=== PATIENT | male | born 1980 | race Caucasian/White ===

== ENCOUNTER 2020-02-11 21:33 | Observation (INO) ==
[2020-02-11] MEDS ORDERED: SODIUM CHLORIDE 0.9% 1000ML 2,000 ML IV ONE (21:57)
--- NOTE | 2020-02-11 22:12 | Emergency Department Note ---
Impression & Plan Fever, Rigors, Thrombocytopenia, Transaminitis, Acute hyponatremia ED Provider Note NAME: DOMINICK FLETCHER AGE: 39 SEX: M : 1980 ARRIVES VIA: Walk-In INFORMANT: Patient ED PROVIDER(S): Nabeel Bentley DO CHIEF COMPLAINT: Fevers HPI: Patient is a 39-year-old male who presents the ER for fevers. Patient has been having fevers of 101-103 since this past Tuesday. He notes that he has diffuse muscle aches and bone aches. He has been taking Tylenol and now is taking some Advil to bring his fevers down. He notes that he was so sore he never noticed his rash on his left proximal thigh. It is red and circumferential. He notes he does have dogs in the house which intermittently get ticks on them. 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 He denies any sign ificant recent travel but does have we will go down to [place]. He was recently tested for COVID which was negative. He denies any cough shortness of breath or runny nose. No belly pain nausea vomiting or diarrhea. No dysuria urgency or frequency. He notes he does have a headache is located in the frontal sinuses and feels as though pressure. This headache has now dissipated. Is very mild today. He denies any neck stiffness or any pain with range of motion of his neck. He notes he was talking with a physician that he knew who referred him in for additional testing after he found to have the redness on his left thigh. ROS: See above HPI for pertinent positives & negatives. A total of 10 systems reviewed and were otherwise negative. PAST MEDICAL HISTORY:See Below PAST SURGICAL HISTORY:See Below FAMILY HISTORY:See Below SOCIAL HISTORY:See Below HOME MEDICATIONS:See Below ALLERGIES:See Below VITALS:See Below PHYSICAL EXAMINATION: GENERAL: Sitting up in bed, alert, well appearing, well nourished, no distress, non-toxic EYE EXAM: normal conjunctiva. OROPHARYNX: no exudate, no erythema, lips, buccal mucosa, and tongue normal and mucous membranes are moist NECK: supple, no nuchal rigidity, no adenopathy, non-tender LUNGS: Clear to auscultation. Normal chest wall mechanics HEART: no murmurs, S1 normal and S2 normal ABDOMEN: abdomen soft, non-tender, normo-active bowel sounds, no masses, no rebound or guarding. BACK: Back is symmetrical on inspection and there is no deformity, no midline tenderness, no CVA tenderness. SKIN: 4 inch area of circular erythema left proximal lateral thigh UPPER EXTREMITIES: upper extremities are grossly normal. LOWER EXTREMITIES: No pitting edema. NEURO EXAM: Normal sensorium, cranial nerves II-XII grossly intact, normal speech, no gross weakness of arms, no gross weakness of legs. MEDICAL DECISION MAKING: Patient is a 39-year-old male who presents the ER for myalgias, arthralgias and Rigor's. He has been having fevers of 101-104 for the past 3 days. He was seen in the ER and had blood work and discharged home yesterday. He just noticed a rash on his left hip. Labs show leukopenia 4.7 down from earlier today at 4.82. Platelets are down to 124 from 130s. INR was unremarkable. BMP with mild hyp onatremia. Remainder of electrolytes were unremarkable. Transaminitis were worsening with an AST of 139 up from 95 and ALT of 96. Anaplasmosis smear was negative although it does miss close to 30%. IgM was equivocal. Patient was given a gram of Rocephin and oral doxycycline. Doxy would cover him for both Lyme and anaplasmosis. Labs do suggest that this is likely anaplasmosis but with the equivocal Lyme felt was beneficial to give IV Rocephin in combo with the oral doxycycline for Lyme disease which was already given. Patient was given IV fluids. Throughout the ER he had persistent shaking chills. Recommended admission. He declined LP although I do not think that he has meningitis. Patient was agreeable to admission after discussion with the as he was sitting having persistent Rigor's and fevers. Discussed case with the hospitalist for admission and further work-up. Triage Nursing notes reviewed. Prior medical records reviewed Vital Signs: reviewed and remarkable for HTN Differential diagnosis: Differential diagnosis includes etiologies such as sepsis, UTI, pneumonia, metabolic, electrolyte abnormalities, cardiac sources, intracerebral event, toxicologic, neurological, as well as others were entertained. ER treatment provided: See below Diagnostics interpreted by me: ECG: Sinus rhythm rate 65 Normal axis No PVCs Incomplete right bundle Normal QTC Cardiac Monitoring: An order was placed for continuous cardiac monitoring. The monitor shows a rate of 81 with sinus rhythm. Laboratory studies: As stated above and show below. Imaging studies: Portable AP upright 1 view of the chest shows no focal infiltrate or pneumothorax per my read. Consultation(s): Dr. Roe Hdez ED COURSE: Procedures: none Critical Care: None Past Med/Surg History Social History Visual Impairment: Limited Hearing Ability: Hard of Hearing marital status: Current Living Situation Comment: with spouse and children current occupation: self-employed Feels Safe at Home: Yes Smoking Status: Never smoker Hx Alcohol Use: Yes Childhood Exposure to Second-Hand Smoke: Yes Dental Care, Regularly: Yes Physical Activity Frequency: 5-6 Times per Week Allergies Allergies Allergy/AdvReac Type Severity Reaction Status Date / Time No Known Allergies Allergy Verified 02/10/20 20:24 Home Meds Home Medications Medication Instructions Recorded Confirmed acetaminophen [Tylenol Extra 1,000 mg PO Q6H PRN 02/10/20 02/11/20 Strength] multivitamin 1 tab PO DAILY 02/11/20 02/11/20 Previous Rx's Medication Instructions Recorded fluticasone propionate 100 1 puffs INHALATION BID #60 ea 04/04/19 mcg/actuation blister powder for inhalation albuterol sulfate 90 mcg/actuation 1 - 2 puffs INHALATION .COMPLEX 10/30/19 aerosol inhaler PRN #18 gm Results & Data (ED) Vital Signs Vital Signs - 24 hr 02/11/20 21:44 02/11/20 22:36 02/11/20 22:42 Temperature 37.4 C Temperature Source Oral Pulse Rate 79 70 68 Pulse Rate from SpO2 Sensor 69 Respiratory Rate 80 H 20 20 Respiratory Effort / Characteristics Non-Labored Spontaneous Respiratory Depth Normal Respiratory Pattern Regular Blood Pressure 137/92 159/70 H Blood Pressure Mean 107 86 Pulse Oximetry 100 99 99 Oxygen Delivery Method Room Air Room Air Sepsis Recent Fever Within 48 Hours Yes Sepsis New/Unexplained Change in Mental Status No Sepsis Action Taken by Nursing Previously Notified Laboratory Data Result diagrams: 02/11/20 22:24 02/11/20 22:24 Lab Results 02/11/20 02/11/20 02/11/20 Range/Units 22:24 22:24 22:24 WBC 4.74 L (4.8-10.8) K/uL RBC 5.31 (4.7-6.1) M/uL Hgb 14.0 (14.0-18.0) g/dL Hct 41.8 L (42-52) % MCV 78.7 L (80-100) fL MCH 26.4 (25-34) pg MCHC 33.5 (32-36) g/dL RDW Std Deviation 37.4 (36.4-46.3) fL RDW Coeff of Barb 13.2 (11.5-14.5) % Plt Count 124 L (130-400) K/uL MPV 10.5 H (7.4-10.4) fL Immature Gran % (Auto) 0.4 % Neut % (Auto) 75.6 % Lymph % (Auto) 16.2 % [place] % (Auto) 7.2 % Eos % (Auto) 0.0 % Baso % (Auto) 0.6 % Neut # (Auto) 3.58 (1.4-6.5) K/uL Lymph # (Auto) 0.77 L (1.2-3.4) K/uL [place] # (Auto) 0.34 (0.11-0.59) K/uL Eos # (Auto) 0.00 (0-0.5) K/uL Baso # (Auto) 0.03 (0-0.2) K/uL Immature Gran # (Auto) 0.02 (0.00-0.02) K/uL PT 12.9 H (9.0-12.0) Seconds INR 1.2 H (0.9-1.1) APTT 30.4 (21.0-31.0) Seconds PTT Ratio 1.1 Sodium (136-145) mmol/L Potassium (3.5-5.1) mmol/L Chloride (98-107) mmol/L Carbon Dioxide (21-32) mmol/L Anion Gap (3-11) BUN (7-18) mg/dl Creatinine (0.6-1.4) mg/dl Est Cr Clr Drug Dosing ml/min Est GFR ( Amer) Est GFR (Non-Af Amer) BUN/Creatinine Ratio (10-20) Glucose (70-99) mg/dl Lactate (0.4-2.0) mmol/L Calcium (8.5-10.1) mg/dl Magnesium (1.8-2.4) mg/dl Total Bilirubin (0.2-1) mg/dl AST (15-37) U/L ALT (12-78) U/L Alkaline Phosphatase (45-117) U/L Total Protein (6.4-8.2) gm/dl Albumin (3.4-5.0) gm/dl Globulin (2.5-4.0) gm/dl Albumin/Globulin Ratio (0.9-2) Anaplasma Smear See Comment Lyme Disease IgG Ab Negative (Negative) Lyme Disease IgM Ab Equivocal A (Negative) 02/11/20 02/11/20 Range/Units 22:24 22:24 WBC (4.8-10.8) K/uL RBC (4.7-6.1) M/uL Hgb (14.0-18.0) g/dL Hct (42-52) % MCV (80-100) fL MCH (25-34) pg MCHC (32-36) g/dL RDW Std Deviation (36.4-46.3) fL RDW Coeff of Barb (11.5-14.5) % Plt Count (130-400) K/uL MPV (7.4-10.4) fL Immature Gran % (Auto) % Neut % (Auto) % Lymph % (Auto) % [place] % (Auto) % Eos % (Auto) % Baso % (Auto) % Neut # (Auto) (1.4-6.5) K/uL Lymph # (Auto) (1.2-3.4) K/uL [place] # (Auto) (0.11-0.59) K/uL Eos # (Auto) (0-0.5) K/uL Baso # (Auto) (0-0.2) K/uL Immature Gran # (Auto) (0.00-0.02) K/uL PT (9.0-12.0) Seconds INR (0.9-1.1) APTT (21.0-31.0) Seconds PTT Ratio Sodium 135 L (136-145) mmol/L Potassium 3.7 (3.5-5.1) mmol/L Chloride 104 (98-107) mmol/L Carbon Dioxide 25 (21-32) mmol/L Anion Gap 6.0 (3-11) BUN 15 (7-18) mg/dl Creatinine 1.12 (0.6-1.4) mg/dl Est Cr Clr Drug Dosing 97.2 ml/min Est GFR ( Amer) 95.4 Est GFR (Non-Af Amer) 82.3 BUN/Creatinine Ratio 13.5 (10-20) Glucose 110 H (70-99) mg/dl Lactate 1.7 (0.4-2.0) mmol/L Calcium 8.5 (8.5-10.1) mg/dl Magnesium 2.0 (1.8-2.4) mg/dl Total Bilirubin 0.8 (0.2-1) mg/dl AST 139 H (15-37) U/L ALT 96 H (12-78) U/L Alkaline Phosphatase 174 H (45-117) U/L Total Protein 7.2 (6.4-8.2) gm/dl Albumin 3.4 (3.4-5.0) gm/dl Globulin 3.8 (2.5-4.0) gm/dl Albumin/Globulin Ratio 0.9 (0.9-2) Anaplasma Smear Lyme Disease IgG Ab (Negative) Lyme Disease IgM Ab (Negative) Administered Medications Discontinued Medications Doxycycline Hyclate (Vibramycin) 100 mg PO NOW STA Stop: 02/11/20 23:03 Last Admin: 02/11/20 23:14 Dose: 100 mg Documented by: [id number] Sodium Chloride (Nss 1000ml) 2,000 mls @ 999 mls/hr IV .Q2H1M ONE Stop: 02/11/20 23:57 Last Admin: 02/11/20 22:36 Dose: 999 mls/hr Documented by: [id number] Ceftriaxone Sodium (Rocephin) 1,000 mg in 50 mls @ 100 mls/hr IV NOW STA Stop: 02/11/20 23:31 Last Infusion: 02/11/20 23:46 Dose: 0 mls/hr Documented by: [id number] Admin: 02/11/20 23:14 Dose: 100 mls/hr Documented by: [id number] Discharge Plan Visit Data Chief Complaint: Referred by Doctor Stated Complaint: TESTED FOR LYMES ED Provider: Nabeel Bentley Discharge Problem: Fever, Rigors, Thrombocytopenia, Transaminitis, Acute hyponatremia Forms Stand Alone Forms: My [facility] [place] [employer] Prescriptions Prescriptions: No Action fluticasone propionate 100 mcg/actuation blister with device 1 puffs inhalation BID Qty: 60 RF: 5 albuterol sulfate [ProAir HFA] 90 mcg/actuation HFA aerosol inhaler 1 - 2 puffs inhalation .COMPLEX PRN (Reason: shortness of breath or wheezing) Qty: 18 RF: 1 multivitamin Tablet 1 tab PO DAILY RF: 0 acetaminophen [Tylenol Extra Strength] 500 mg Tablet 1,000 mg PO Q6H PRN (Reason: Fever Or Pain) RF: 0 Discharge Problem: Fever Qualifiers: Fever type: unspecified Qualified Code(s): R50.9 - Fever, unspecified
[2020-02-11 22:40] LABS: Basophils # (auto) 0.03 K/uL (0-0.2); Basophils % (auto) 0.6 %; Hematocrit (blood only) 41.8 % (42-52); Immature Granulocytes # (auto) 0.02 K/uL (0.00-0.02); Immature Granulocytes % (auto) 0.4 %; Lymphocytes # (auto) 0.77 K/uL (1.2-3.4); Lymphocytes % (auto) 16.2 %; Mean Corpuscular Hemoglobin 26.4 pg (25-34); Mean Corpuscular Hgb Conc 33.5 g/dL (32-36); Mean Corpuscular Volume 78.7 fL (80-100); Mean Platelet Volume 10.5 fL (7.4-10.4); Monocytes # (auto) 0.34 K/uL (0.11-0.59); Monocytes % (auto) 7.2 %; Neutrophils # (auto) 3.58 K/uL (1.4-6.5); Neutrophils % (auto) 75.6 %; Platelet Count 124 K/uL (130-400); RDW Coefficient of Variation 13.2 % (11.5-14.5); RDW Standard Deviation 37.4 fL (36.4-46.3); Red Blood Count 5.31 M/uL (4.7-6.1); White Blood Count 4.74 K/uL (4.8-10.8)
[2020-02-11 22:52] LABS: INR 1.2 (0.9-1.1); Partial Thromboplastin Ratio 1.1; Partial Thromboplastin Time 30.4 Seconds (21.0-31.0); Prothrombin Time 12.9 Seconds (9.0-12.0)
[2020-02-11 22:57] LABS: Albumin Level 3.4 gm/dl (3.4-5.0); BUN Creatinine Ratio 13.5 (10-20); Calcium 8.5 mg/dl (8.5-10.1); Creatinine Clr Calc Pharmacy 97.2 ml/min; Est GFR (African American) 95.4; Est GFR (Non-African American) 82.3; Potassium 3.7 mmol/L (3.5-5.1)
[2020-02-11 23:00] LABS: Albumin Globulin Ratio 0.9 (0.9-2); Bilirubin,Total 0.8 mg/dl (0.2-1); Globulin 3.8 gm/dl (2.5-4.0); Total Protein 7.2 gm/dl (6.4-8.2)
[2020-02-11] MEDS ORDERED: DOXYCYCLINE HYCLATE 100 MG CAP PO STA (23:02)
[2020-02-11] MEDS ORDERED: cefTRIAXone SODIUM 1,000 MG/50 ML BAG IV STA (23:02)
[2020-02-11 23:28] LABS: Lyme Ab IgG w/WB Rflx Negative (Negative); Lyme Ab IgM w/WB Rflx Equivocal (Negative)
[2020-02-12] MEDS ORDERED: IBUPROFEN 200 MG TAB PO STA (00:29)
--- NOTE | 2020-02-12 02:00 | History & Physical Report ---
Date of Service February 12, 2020 Assessment & Plan (1) Fever: Johnathan Bolanos is a 39 year old man with a PMH significant for Ashtma here with four days of fevers, rigors and muscle pain. 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 Avoiding nsaids and tylenol tramadol for discomfort Ad[facility] to [facility] for cardiac monitoring IF patient develops any neuro symptoms, confusion, worsening headaches, light sensitivity will re recommend LP THromboyctopenia Likely secondary to anaplasmosis infection Will hold off on ibuprofen for fever relief as do not want to inactivate platelets as they can continue to drop with infection Will continue to monitor with daily cbc's Elevated liver enzymes Will hold off on tylenol for fever relief Continue to monitor with daily CMP's Rigors muscle pain and dark urine WIll get CK to evaluate for rhabdo DVT PPx: Lovenox F/E/N: Regular diet, NSS and 20 meq K at 125 mls/hour Dispo: Admitted for IV doxy and ceftriaxone, cardiac monitoring anaplasmosis PCR testing and lyme testing. Full Code (2) Generalized body aches: (3) Rigors: (4) Thrombocytopenia: (5) Transaminitis: (6) Acute hyponatremia: (7) Asthma: Admission and Anticipated Discharge Date Admission Date: February 12, 2020 History of Present Illness Chief Complaint: Fever, Chills, rigors Primary Care Provider: SUSY Mary Johnathan Medina is a generally healthy 39 year old man with a PMH significant for asthma who presents with fevers, chills and rigors since Tuesday. He was last feeling healthy on Tuesday 02/06. On Tuesday he noticed a large, well demarcated, circula,r red rash on his outer thigh. He does not recall any bug bites or ticks but he has been working and hiking outside and he has picked multiple ticks off his dogs. His rigors have been off an on every day for the past three and all of his muscles feel sore from his violent shaking. He has noticed some dark colored urine. Fever as high as 104 has not responded to tylenol. He presented yesterday and was tested for covid and sent home, he's back now continuing to be just as ill and now with this rash. On presentation to ED patient is febrile rest of vitals WNL, breathing comfortably on room air and rigorous. Labwork was significant for mildly decreased WBC count, thrombocytopenia, elevated PT/INR, elevated transaminases and alk phos, peripheral smear negative, lyme IgM equivocal IgG negative individual bands pending, peripheral smear negative, viral panel and COVID negative. CXR negative, ECG with RBB no prior ECG to compare to. Was given doxycycline PO and one dose of 1000 mg Ceftriaxone in ED as well as 2 L nss and ibuprofen. Patient declined Lumbar puncture per ED physician. Patient continuing to feel the same at time of my examination. No shortness of breath, no cough, no loss of smell, no sick contacts. He has had no GI symptoms, no light sensitivity, full range of motion of his neck, no focal neuro deficits, mild chest pain as well as similar pain in all his muscles. Allergies Allergy/AdvReac Type Severity Reaction Status Date / Time No Known Allergies Allergy Verified 02/10/20 20:24 Home Medications Home Medications Medication Instructions Recorded Confirmed Type fluticasone propionate 100 1 puffs INHALATION BID #60 ea 04/04/19 02/11/20 Rx mcg/actuation blister powder for inhalation albuterol sulfate 90 mcg/actuation 1 - 2 puffs INHALATION .COMPLEX 10/30/19 02/11/20 Rx aerosol inhaler PRN #18 gm acetaminophen [Tylenol Extra 1,000 mg PO Q6H PRN 02/10/20 02/11/20 History Strength] multivitamin 1 tab PO DAILY 02/11/20 02/11/20 History Past Med/Surg History Social History Preferred Language: Faroese Communication Ability: Effective Visual Impairment: Limited Hearing Ability: Hard of Hearing Product Sales Engineer Required: No Beliefs That Will Affect Care: None marital status: Current Living Situation: Spouse Current Living Situation Comment: with spouse and children current occupation: self-employed Other Information That Helps Us Care for You: No Feels Safe at Home: Yes Safety Concerns: Feels Safe At This Time Smoking Status: Never smoker Do You Dip or Chew Tobacco: No ; Second Hand Exposure: No ; Hx Alcohol Use: Yes Hx Substance Use: No Childhood Exposure to Second-Hand Smoke: Yes Dental Care, Regularly: Yes Physical Activity Frequency: 5-6 Times per Week Review of Systems Review of Systems: All systems reviewed & are unremarkable except as noted in HPI & below Physical Exam Constitutional: well developed, well nourished and + ill appearing; no altered mental status Eyes: PERRL, conjunctivae normal, anicteric sclerae ENMT: external ear and nose normal, oropharynx normal Respiratory: normal respiratory effort, lungs clear to auscultation Cardiovascular: RRR, no murmur, no edema Gastrointestinal (Abdomen): normal bowel sounds, soft, nontender, no hepa tosplenomegaly Skin: Red circular rash, non raised, blanching warm, no clear puncture, bite or scratch circular oval about 5cm x 4 cm on right Neurologic: PERRL, EOMI, accommodation nl, no face palsy, no dysarthria Speech / Cognition: normal speech Motor/Sensory: no tremor Results & Data Results & Data ([facility]) Vital Signs (Past 12 Hours) Vital Signs Temp Pulse Pulse Resp BP BP Pulse Ox 02/12/20 01:41 39.2 C H 83 18 146/82 H 98 02/12/20 00:27 38.0 C H 72 18 154/88 H 96 02/11/20 22:42 68 20 99 02/11/20 22:36 70 20 159/70 H 99 02/11/20 21:44 37.4 C 79 80 H 137/92 100 Code Status & VTE Plan VTE Prophylaxis Plan VTE Prophylaxis will be ordered: Yes Supervising Physician Co-Signing Physician Notes Attending addendum: I have physically seen this patient, have supervised the medical residents activities, and agree with the H&P unless as otherwise noted. Assessment and Plan: Febrile illness/sepsis- Patient looks very sick, with chills and rigors in the exam room. Presentation with tick exposure, rash, thrombocytopenia, elevated transaminases and equivocal Lyme test most consistent with anaplasmosis. Initial peripheral smear negative. Follow all antibody and PCR testing. Deserves empiric treatment with ceftriaxone 2000 mg IV daily and doxycycline 100 mg IV twice daily. Rehydration with IV fluids. Zofran 4 mg IV every 6 hours as needed Famotidine 20 mg IV every 12 hours Remainder of orders and notations as noted Resident Activity Tracking Resident Involvement: Resident Care Provided Care Provided: Adult Hospital Medicine (1) Fever Fever type: unspecified Qualified Code(s): R50.9 - Fever, unspecified
[2020-02-12] MEDS ORDERED: POLYETHYLENE (MIRALAX) 17 GM PACK PO PRN (02:06)
[2020-02-12] MEDS ORDERED: SODIUM CHLORIDE 0.9% 1000ML 1,000 ML IV SCH (02:06)
[2020-02-12] MEDS ORDERED: ONDANSETRON INJ 2 MG/ML 2 ML VIAL IV PRN (02:06)
[2020-02-12] MEDS ORDERED: ALBUTEROL HFA 8 GM INHALER INH PRN (02:12)
[2020-02-12] MEDS ORDERED: cefTRIAXone SODIUM 1,000 MG in DEXTROSE 5% 50 ML IV ONE ×2 (02:30→20:30)
[2020-02-12] MEDS: NSS + 20MEQ KCL 20 MEQ/1,000 ML BAG IV SCH ×3 (02:37→21:58)
[2020-02-12 03:06] LABS: Appearance Urine Clear (Clear); Bacteria Urine Automated Negative (Negative); Bilirubin Urine Negative (Negative); Blood Urine Negative (Negative); Cast Urine Automated 0 /lpf (0-5); Color Urine Dark Yellow; Glucose Urine UA Negative (Negative); Ketones Urine Trace (Negative); Leukocyte Esterase Urine Negative (Negative); Nitrite Urine Negative (Negative); Protein Urine 1+ (Negative); RBC Urine Automated 0-4 /hpf (0-4); Specific Gravity Urine 1.023 (1.000-1.030); Urobilinogen Urine Positive (Negative); pH Urine 6.5 (4.5-7.5)
--- NOTE | 2020-02-12 07:27 | XRay Report ---
XR chest 1V portable CLINICAL HISTORY: SEPSIS COMPARISON STUDY: Chest radiograph February 10, 2020. FINDINGS: Lung volumes are normal. Lungs are clear. There is no pneumothorax or pleural effusion. Car diac size is normal. Mediastinal contours are normal. There is no evidence for pulmonary edema. IMPRESSION: No acute cardiopulmonary findings. ACT 112: Negative or not required by law. Electronically signed by: Donnell Breaux M.D. 02/12/2020 7:26 AM
[2020-02-12] MEDS: MULTIVITAMIN TAB PO SCH (07:48)
[2020-02-12] MEDS: FLUTICASONE FUROATE 100MCG 14 PUFFS/INHALER INH SCH (07:48)
[2020-02-12] MEDS ORDERED: ENOXAPARIN INJ 40 MG/0.4 ML SYR SQ SCH (09:00)
[2020-02-12] MEDS: DOXYCYCLINE HYCLATE 100 MG in DEXTROSE 5% 100 ML IV SCH ×2 (11:14→23:10)
[2020-02-12 11:23] LABS: Basophils # (auto) 0.03 K/uL (0-0.2); Basophils % (auto) 0.6 %; Hematocrit (blood only) 40.8 % (42-52); Hemoglobin 13.3 g/dL (14.0-18.0); Immature Granulocytes # (auto) 0.01 K/uL (0.00-0.02); Immature Granulocytes % (auto) 0.2 %; Lymphocytes # (auto) 1.47 K/uL (1.2-3.4); Lymphocytes % (auto) 30.6 %; Mean Corpuscular Hgb Conc 32.6 g/dL (32-36); Mean Corpuscular Volume 79.8 fL (80-100); Mean Platelet Volume 9.4 fL (7.4-10.4); Monocytes # (auto) 0.24 K/uL (0.11-0.59); Neutrophils # (auto) 3.05 K/uL (1.4-6.5); Neutrophils % (auto) 63.6 %; Platelet Count 104 K/uL (130-400); RDW Coefficient of Variation 13.1 % (11.5-14.5); RDW Standard Deviation 38.2 fL (36.4-46.3); Red Blood Count 5.11 M/uL (4.7-6.1)
[2020-02-12 11:52] LABS: Albumin Level 2.9 gm/dl (3.4-5.0); BUN Creatinine Ratio 8.3 (10-20); Calcium 8.1 mg/dl (8.5-10.1); Creatinine Clr Calc Pharmacy 87.8 ml/min; Est GFR (African American) 84.3; Est GFR (Non-African American) 72.8; Potassium 4.1 mmol/L (3.5-5.1)
[2020-02-12 11:54] LABS: Albumin Globulin Ratio 0.8 (0.9-2); Bilirubin,Total 0.9 mg/dl (0.2-1); Globulin 3.5 gm/dl (2.5-4.0); Total Protein 6.4 gm/dl (6.4-8.2)
[2020-02-12] MEDS ORDERED: IBUPROFEN 200 MG TAB PO PRN (11:55)
[2020-02-12 12:02] LABS: Toxic Vacuolation 2+
[2020-02-12] MEDS: TRAMADOL HCL 50 MG TABLET PO PRN (12:09)
--- NOTE | 2020-02-12 12:40 | Hospitalist Progress Note ---
Date of Service February 12, 2020 Assessment & Plan (1) Fever: Fevers, chills, rigors suspected anaplasmosis Given his prolonged fevers and rigors, possible tick exposure, red rash, thrombocytopenia, elevated transaminases, very suspicious for anaplasmosis PCR for anaplasmosis pending, Lyme western blot pending Continue IV doxycycline 100 mg BID Acetaminophen, ibuprofen for pain/fever CK was normal Covid testing performed during ED visit over the weekend, negative (2) Thrombocytopenia: Platelets decreased to 104,000. Continue to monitor (3) Transaminitis: Secondary to likely anaplasmosis Resolving (4) Asthma: Continue home inhalers No exacerbation (5) Rash: left hip, large circular dark red rash, now extending slightly out from line of demarcation No central clearing Will leave on ceftriaxone for now to cover for possible cellulitis (6) DVT prophylaxis: DVT PPx: Lovenox F/E/N: Regular diet, NSS and 20 meq K at 125 mls/hour Full Code Admission and Anticipated Discharge Date Admission Date: February 12, 2020 Subjective Mr. Medina is having muscle aches and rigors. He feels generally very unwell. Running low level fevers. Stiff neck but more because of his rigors, neck moves easily through ROM. No headache. ROS Constitutional: see HPI Respiratory: no sob,cough, sputum, or wheezing Cardiac: no chest pain, palpitations, edema, orthopnea or lightheadedness GI: no abdominal pain, nausea, vomiting, diarrhea or constipation : no dysuria or hesitancy Extremities: no joint pain or weakness Skin: no rash All other systems reviewed and negative Physical Exam Physical Exam: General: ill appearing Eyes: normal inspection, PERLL Respiratory: chest non tender, clear to auscultation, normal breath sounds, no respiratory distress, no accessory muscle use Cardiac: regular rate and rhythm, no rub or gallop, no murmur, no edema, no jvd GI/: active bowel sounds, no abd pain or tenderness, soft, non distended Extremities: normal range of motion, normal strength, non tender Neuro/Psych: alert and oriented x 3, normal mood and affect Skin: normal color, dry, circular rash left hip Results & Data Results & Data ([facility]) Vital Signs (Past 12 Hours) Vital Signs Temp Pulse Pulse Resp BP BP Pulse Ox 02/12/20 11:46 37.7 C H 84 16 128/58 L 97 02/12/20 08:00 65 02/12/20 07:16 37.9 C H 82 16 144/75 H 95 02/12/20 02:06 39.5 C H 85 88 18 152/68 H 96 02/12/20 01:41 39.2 C H 83 18 146/82 H 98 Pulse Ox 02/12/20 11:46 02/12/20 08:00 02/12/20 07:16 02/12/20 02:06 96 02/12/20 01:41 PG Care Time/CCT Total # of Minutes Spent Total Time Spent with Patient: Total time spent is greater than 50% in coordination of care (as documented) at patient's floor/unit and/or counseling patient: Coding Level of Care Code 25508 Subseq Hosp Care Lvl 3 Diagnoses Fever R50.9 Fever type: unspecified Thrombocytopenia D69.6 Transaminitis R74.0 Asthma J45.909 Rash R21 DVT prophylaxis Z29.9 (1) Fever Fever type: unspecified Qualified Code(s): R50.9 - Fever, unspecified
[2020-02-12] MEDS: ACETAMINOPHEN 500 MG TAB PO PRN (14:59)
[2020-02-12] MEDS ORDERED: VANCOMYCIN CONSULT ACTIVE PRN (18:01)
[2020-02-12] MEDS ORDERED: VANCOMYCIN HCL 2,000 MG in SODIUM CHLORIDE 0.9% 500 ML IV ONE (18:45)
--- NOTE | 2020-02-12 18:59 | Pharmacy Report ---
Pharmacy Abx Initial Consult - Date of Service February 12, 2020 - Pharmacy Dosing Scope Date of Consult: 02/11 Consultation requested by: Sharon Pharmacy is consulted to initiate vancomycin IV dosing therapy, order appropriate labs and adjust drug dose/frequency. - Subjective The patient is a 39 year old M admitted on 02/12/20 01:08. - Objective Height: 6 ft Weight: 82.9 kg Vital Signs (Past 12hrs): Vital Signs Temp Pulse Pulse Resp BP Pulse Ox 02/12/20 16:09 37.7 C H 02/12/20 15:10 38.7 C H 79 18 162/76 H 97 02/12/20 14:47 84 02/12/20 11:46 37.7 C H 84 16 128/58 L 97 02/12/20 08:00 65 02/12/20 07:16 37.9 C H 82 16 144/75 H 95 Lab Results (24hrs): Laboratory Tests (24 Hours) 02/12/20 02/12/20 02/11/20 11:12 11:12 22:24 WBC 4.80 Neut # (Auto) 3.05 Creatinine 1.24 1.12 Est Cr Clr Drug Dosing 87.8 97.2 Total Creatine Kinase 110 02/11/20 22:24 WBC 4.74 L Neut # (Auto) 3.58 Creatinine Est Cr Clr Drug Dosing Total Creatine Kinase Micro Results: 02/11/20 22:24 Aerobic Blood Culture - Pending Blood Anaerobic Blood Culture - Pending 02/11/20 22:24 Aerobic Blood Culture - Pending Blood Anaerobic Blood Culture - Pending - Assessment & Plan Assessment 39 year old male admitted with fevers, rigors concern for lyme's disease. Continuing to spike fevers this afternoon, neck pain - vancomycin added for broader coverage and to cover meningitis. Patient with also rash of left hip and possible cellulitis. Plan Vancomycin IV * Ordered loading dose of vancomycin 2000 mg (~24 mg/kg) x 1 * Patient meets criteria for vancomycin AUC dosing nomogram - will dose with vancomycin 1g iv q 8 hrs * Estimated trough ~14/AUC 590 - target AUC/ANGELA 400-600 * Will plan to order trough if continued >48 hrs Pharmacy will continue to follow and will adjust dose/frequency as necessary. Thank you.
--- NOTE | 2020-02-12 20:18 | Billing Data ---
Date of Service February 12, 2020 Coding Level of Care Code 80070 Initial Inpt Care Lvl 3
[2020-02-12] MEDS ORDERED: cefTRIAXone SODIUM 2,000 MG in DEXTROSE 5% 50 ML IV SCH (23:00)
--- NOTE | 2020-02-13 00:12 | Electrocardiogram Report ---
Test Reason : Blood Pressure : / mmHG Vent. Rate : 065 BPM Atrial Rate : 065 BPM P-R Int : 196 ms QRS Dur : 112 ms QT Int : 374 ms P-R-T Axes : 055 023 044 degrees QTc Int : 388 ms Normal sinus rhythm Incomplete right bundle branch block Borderline ECG No previous ECGs available Confirmed by Saeid Tai ([id number]) on 02/13/2020 12:12:25 AM Referred By: REFERRED SELF Confirmed By:Saeid Tai
[2020-02-13] MEDS: VANCOMYCIN HCL 1,000 MG in SODIUM CHLORIDE 0.9% 250 ML IV SCH ×2 (03:00→13:51)
[2020-02-13] MEDS: MULTIVITAMIN TAB PO SCH (08:12)
[2020-02-13] MEDS: NSS + 20MEQ KCL 20 MEQ/1,000 ML BAG IV SCH ×2 (08:12→20:13)
[2020-02-13] MEDS: FLUTICASONE FUROATE 100MCG 14 PUFFS/INHALER INH SCH (08:14)
[2020-02-13 08:36] LABS: Basophils # (auto) 0.01 K/uL (0-0.2); Basophils % (auto) 0.3 %; Eosinophils # (auto) 0.03 K/uL (0-0.5); Eosinophils % (auto) 0.8 %; Hematocrit (blood only) 40.5 % (42-52); Hemoglobin 13.2 g/dL (14.0-18.0); Lymphocytes # (auto) 1.78 K/uL (1.2-3.4); Lymphocytes % (auto) 46.1 %; Mean Corpuscular Hemoglobin 25.8 pg (25-34); Mean Corpuscular Hgb Conc 32.6 g/dL (32-36); Mean Corpuscular Volume 79.3 fL (80-100); Mean Platelet Volume 9.4 fL (7.4-10.4); Monocytes # (auto) 0.35 K/uL (0.11-0.59); Monocytes % (auto) 9.1 %; Neutrophils # (auto) 1.69 K/uL (1.4-6.5); Neutrophils % (auto) 43.7 %; Platelet Count 128 K/uL (130-400); RDW Coefficient of Variation 13.3 % (11.5-14.5); RDW Standard Deviation 38.3 fL (36.4-46.3); Red Blood Count 5.11 M/uL (4.7-6.1); White Blood Count 3.86 K/uL (4.8-10.8)
[2020-02-13 09:03] LABS: BUN Creatinine Ratio 8.1 (10-20); Calcium 8.6 mg/dl (8.5-10.1); Creatinine Clr Calc Pharmacy 104.7 ml/min; Est GFR (African American) 104.3; Potassium 3.6 mmol/L (3.5-5.1)
[2020-02-13 09:06] LABS: Albumin Globulin Ratio 0.9 (0.9-2); Bilirubin,Total 0.6 mg/dl (0.2-1); Globulin 3.5 gm/dl (2.5-4.0); Total Protein 6.5 gm/dl (6.4-8.2)
[2020-02-13 11:25] LABS: Appearance CSF Clear; CSF Count Tube # 3; CSF Xanthrochromic No xanthochromia; Color CSF Colorless; Red Blood Cell CSF (A) 0 /uL (0-); Red Blood Cell CSF (B) 0 /uL (0-); White Blood Cell CSF (A) 0 /uL (0-5); White Blood Cell CSF (B) 1 /uL (0-5)
[2020-02-13 11:30] LABS: Total Protein CSF 46.3 mg/dl (15-45)
--- NOTE | 2020-02-13 11:36 | Fluoroscopy Report ---
FL lumbar puncture diagnostic CLINICAL HISTORY: r/o meningitis COMPARISON STUDY: None FLUOROSCOPY TIME: 12 seconds. NUMBER OF FLUOROSCOPIC IMAGES: 1 FINDINGS: A timeout was obtained. The risks the procedure were explained to the patient and informed consent was obtained. The patient prepped and draped in sterile fashion. The skin was anesthetized 1% lidocaine. Utilizing a 20-gauge spinal needle, a lumbar puncture was performed at the L4-5 level. 8 cc of clear CSF was withdrawn via gravity drip and into 4 tubes for laboratory analysis a s specified by the referring clinician. There were no immediate complications. IMPRESSION: 1. Successful fluoroscopically guided diagnostic lumbar puncture performed at the L4-5 level. 8 cc of clear CSF was collected and into 4 tubes and sent for laboratory analysis. ACT 112: Negative or not required by law. Electronically signed by: James Rogers M.D. 02/13/2020 11:34 AM
[2020-02-13] MEDS: cefTRIAXone SODIUM 2,000 MG in DEXTROSE 5% 50 ML IV SCH ×2 (11:52→22:03)
[2020-02-13] MEDS: DOXYCYCLINE HYCLATE 100 MG in DEXTROSE 5% 100 ML IV SCH ×2 (11:59→22:42)
[2020-02-13 14:03] LABS: Cryptococcus neoformans/ga PCR Not Detected (NotDetected); Cytomegalovirus PCR Not Detected (NotDetected); Enterovirus PCR Not Detected (NotDetected); Escherichia coli K1 PCR Not Detected (NotDetected); Haemophilius influenzae PCR Not Detected (NotDetected); Herpes Simplex Virus 1 PCR Not Detected (NotDetected); Herpes Simplex Virus 2 PCR Not Detected (NotDetected); Human Herpes Virus 6 PCR Not Detected (NotDetected); Human Parechovirus PCR Not Detected (NotDetected); Listeria monocytogenes PCR Not Detected (NotDetected); Neisseria meningitidis PCR Not Detected (NotDetected); Streptococcus agalactiae PCR Not Detected (NotDetected); Streptococcus pneumoniae PCR Not Detected (NotDetected); Varicella Zoster Virus PCR Not Detected (NotDetected)
--- NOTE | 2020-02-13 17:33 | Hospitalist Progress Note ---
Date of Service February 13, 2020 Assessment & Plan (1) Fever: Fevers, chills, rigors suspected anaplasmosis Given his prolonged fevers and rigors, possible tick exposure, red rash, thrombocytopenia, elevated transaminases, very suspicious for anaplasmosis and/or Lyme PCR for anaplasmosis pending, Lyme western blot pending Continue IV doxycycline 100 mg BID, Rocephin Acetaminophen, ibuprofen for pain/fever CK was normal Covid testing performed during ED visit over the weekend, negative LP performed this morning due to severe headaches yesterday. Will await results (2) Thrombocytopenia: Platelets rebounding Continue to monitor (3) Transaminitis: Secondary to likely anaplasmosis Resolving (4) Asthma: Continue home inhalers No exacerbation (5) Anemia: Microcytic Iron panel am May be largely dilutional (6) Rash: left hip, No central clearing yet but rash is expanding and lightening in color (7) DVT prophylaxis: Lovenox Admission and Anticipated Discharge Date Admission Date: February 12, 2020 Subjective Feeling much better today. Headaches have resolved, no further aches/chills. Rash continues to get larger but less red. ROS Constitutional: see HPI Respiratory: no sob,cough, sputum, or wheezing Cardiac: no chest pain, palpitations, edema, orthopnea or lightheadedness GI: no abdominal pain, nausea, vomiting, diarrhea or constipation : no dysuria or hesitancy Extremities: no joint pain or weakness Skin: see HPI All other systems reviewed and negative Physical Exam Physical Exam: General: no distress Eyes: normal inspection, PERLL Respiratory: chest non tender, clear to auscultation, normal breath sounds, no respiratory distress, no accessory muscle use Cardiac: regular rate and rhythm, no rub or gallop, no murmur, no edema, no jvd GI/: active bowel sounds, no abd pain or tenderness, soft, non distended Extremities: normal range of motion, normal strength, non tender Neuro/Psych: alert and oriented x 3, normal mood and affect Skin: normal color, dry, left thigh circular rash increasing in size but manager contact red color today Results & Data Results & Data ([facility]) Vital Signs (Past 12 Hours) Vital Signs Temp Pulse Pulse Resp BP Pulse Ox 02/13/20 15:11 36.6 C 56 L 16 145/79 H 98 02/13/20 12:36 36.8 C 67 16 121/67 99 02/13/20 10:00 56 L 02/13/20 07:10 36.9 C 66 16 123/69 97 PG Care Time/CCT Total # of Minutes Spent Total Time Spent with Patient: Total time spent is greater than 50% in coordination of care (as documented) at patient's floor/unit and/or counseling patient: Coding Level of Care Code 09655 Subseq Hosp Care Lvl 2 Diagnoses Fever R50.9 Fever type: unspecified Thrombocytopenia D69.6 Transaminitis R74.0 Asthma J45.909 Anemia D64.9 Rash R21 DVT prophylaxis Z29.9 (1) Fever Fever type: unspecified Qualified Code(s): R50.9 - Fever, unspecified
[2020-02-13] MEDS: ACETAMINOPHEN 500 MG TAB PO PRN (17:44)
[2020-02-14] MEDS: NSS + 20MEQ KCL 20 MEQ/1,000 ML BAG IV SCH (06:12)
[2020-02-14 07:15] LABS: Basophils # (auto) 0.02 K/uL (0-0.2); Basophils % (auto) 0.5 %; Eosinophils % (auto) 2.7 %; Hematocrit (blood only) 39.8 % (42-52); Hemoglobin 13.4 g/dL (14.0-18.0); Lymphocytes # (auto) 1.78 K/uL (1.2-3.4); Lymphocytes % (auto) 48.4 %; Mean Corpuscular Hemoglobin 26.2 pg (25-34); Mean Corpuscular Hgb Conc 33.7 g/dL (32-36); Mean Corpuscular Volume 77.7 fL (80-100); Mean Platelet Volume 10.1 fL (7.4-10.4); Monocytes # (auto) 0.47 K/uL (0.11-0.59); Monocytes % (auto) 12.8 %; Neutrophils # (auto) 1.31 K/uL (1.4-6.5); Neutrophils % (auto) 35.6 %; Platelet Count 131 K/uL (130-400); RDW Coefficient of Variation 13.4 % (11.5-14.5); RDW Standard Deviation 37.5 fL (36.4-46.3); Red Blood Count 5.12 M/uL (4.7-6.1); White Blood Count 3.68 K/uL (4.8-10.8)
[2020-02-14 07:34] LABS: Estimated Average Glucose 108 mg/dl; Hemoglobin A1C 5.4 % (4.5-5.6)
[2020-02-14 07:42] LABS: Albumin Level 2.8 gm/dl (3.4-5.0); BUN Creatinine Ratio 11.5 (10-20); Calcium 8.2 mg/dl (8.5-10.1); Creatinine Clr Calc Pharmacy 126.6 ml/min; Est GFR (African American) 126.6; Est GFR (Non-African American) 109.2; Potassium 3.8 mmol/L (3.5-5.1)
[2020-02-14 07:46] LABS: Albumin Globulin Ratio 0.8 (0.9-2); Bilirubin,Total 0.4 mg/dl (0.2-1); Globulin 3.6 gm/dl (2.5-4.0); Total Protein 6.4 gm/dl (6.4-8.2)
[2020-02-14] MEDS: TRAMADOL HCL 50 MG TABLET PO PRN (08:28)
[2020-02-14] MEDS: MULTIVITAMIN TAB PO SCH (08:28)
[2020-02-14] MEDS: FLUTICASONE FUROATE 100MCG 14 PUFFS/INHALER INH SCH (08:28)
--- NOTE | 2020-02-14 10:10 | Discharge Summary ---
Date of Service February 14, 2020 Admission HPI Per Admitting Provider Johnathan Medina is a generally healthy 39 year old man with a PMH significant for asthma who presents with fevers, chills and rigors since Tuesday. He was last feeling healthy on Tuesday 02/06. On Tuesday he noticed a large, well demarcated, circula,r red rash on his outer thigh. He does not recall any bug bites or ticks but he has been working and hiking outside and he has picked multiple ticks off his dogs. His rigors have been off an on every day for the past three and all of his muscles feel sore from his violent shaking. He has noticed some dark colored urine. Fever as high as 104 has not responded to tylenol. He presented yesterday and was tested for covid and sent home, he's back now continuing to be just as ill and now with this rash. On presentation to ED patient is febrile rest of vitals WNL, breathing c omfortably on room air and rigorous. Labwork was significant for mildly decreased WBC count, thrombocytopenia, elevated PT/INR, elevated transaminases and alk phos, peripheral smear negative, lyme IgM equivocal IgG negative individual bands pending, peripheral smear negative, viral panel and COVID negative. CXR negative, ECG with RBB no prior ECG to compare to. Was given doxycycline PO and one dose of 1000 mg Ceftriaxone in ED as well as 2 L nss and ibuprofen. Patient declined Lumbar puncture per ED physician. Patient continuing to feel the same at time of my examination. No shortness of breath, no cough, no loss of smell, no sick contacts. He has had no GI symptoms, no light sensitivity, full range of motion of his neck, no focal neuro deficits, mild chest pain as well as similar pain in all his muscles. 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 Discharge Exam Constitutional WD/WN, vitals as above Respiratory normal respiratory effort, lungs clear to auscultation Cardiovascular RRR, no murmur, no edema Gastrointestinal (Abdomen) Inspection/Auscultation: abdomen normal to inspection and normal bowel sounds; abdomen not distended Percussion/Palpation: abdomen soft; abdomen nontender Musculoskeletal no cyanosis or clubbing, extremities motor strength 5/5 Skin left hip skin rash erythema improving Neurologic moves all extremities and awake Psychiatric A+Ox3, euthymic affect Discharge Data Allergies Allergy/AdvReac Type Severity Reaction Status Date / Time No Known Allergies Allergy Verified 02/10/20 20:24 Consultations 02/12/20 00:00 ED Decision to Admit Stat Ordered Studies 02/13/20 07:00 FL lumbar puncture diagnostic Routine Hospital Course (1) Fever: Fevers, chills, rigors suspected anaplasmosis Given his prolonged fevers and rigors, possible tick exposure, red rash, thrombocytopenia, elevated transaminases, very suspicious for anaplasmosis and/or Lyme PCR for anaplasmosis pending, Lyme western blot pending Continue IV doxycycline 100 mg BID for total of 10 days Acetaminophen, ibuprofen for pain/fever CK was normal Covid testing performed during ED visit over the weekend, negative LP performed 02/12 due to severe headaches - results for Lyme pending, viral panel negative - will discharge with doxycycline, if LP turns out positive, will set patient up to receive outpatient Rocephin but this is less likely (2) Thrombocytopenia: Resolved (3) Transaminitis: Secondary to likely anaplasmosis Resolving (4) Asthma: Continue home inhalers No exacerbation (5) Anemia: Microcytic Iron panel with normal iron, low TIBC and transferrin, normal ferritin May be largely dilutional thought patient does report anemia as a child Follow up with pcp (6) Rash: left hip, No central clearing yet but rash is expanding and lightening in color (7) Neutropenia: Mild - neutrophil # 1.3 today with WBCs 3.6. Cautioned patient to avoid people other than his family for the next few days, frequent hand washing. (8) DVT prophylaxis: Lovenox while inpatient Total Time Total Time Spent Total Time Spent (In Minutes): greater than 30 minutes Discharge Plan Discharge Items Patient Disposition: Home - Self-Care Reason For Visit: FEBRILE ILLNESS PRESUMED ANAPLASMOSIS Discharge Diagnosis: Febrile illness presumed anaplasmosis Activity: Resume your previous activity Non-emergency contact: Primary Care Provider Call non-emergency contact if: you have any medication questions Follow-up/Referrals: Jonn Fajardo CRNP [Primary Care Provider] - Diet: Regular Addtl Attending Provider Instructions: (1) Fever: Suspect anaplasmosis and/or Lyme disease PCR for anaplasmosis pending, Lyme western blot pending, complete results of lumbar puncture pending You will continue IV doxycycline 100 mg BID for a total of ten days (Your prescription should have 13 doses in it as today is day 3). Your lumbar puncture results are still pending. We will call if it is necessary to start outpatient ceftriaxone therapy but this is less likely Your immune system is not yet back to normal, you should avoid being around people other than your family for the next few days and take care to wash hands frequently. You should gradually return to your normal activity but hold off on rigorous exercise for the next few days until you are feeling better. (2) Thrombocytopenia: Platelets rebounding Continue to monitor (3) Transaminitis: Secondary to likely anaplasmosis Resolving (4) Asthma: Continue home inhalers No exacerbation (5) Anemia: Microcytic Iron panel am May be largely dilutional (6) Rash: left hip, No central clearing yet but rash is expanding and lightening in color (7) DVT prophylaxis: Lovenox Pending Studies at Discharge: Yes (Lumbar puncture studies, Lyme Western Blot, Anaplasmosis DNA ) Stand-Alone Forms: My [facility], Smoking Cessation Medications and DC Order Prescriptions: New doxycycline hyclate 100 mg tablet 100 mg PO BID Qty: 13 RF: 0 Continued fluticasone propionate 100 mcg/actuation blister with device 1 puffs inhalation BID Qty: 60 RF: 5 albuterol sulfate [ProAir HFA] 90 mcg/actuation HFA aerosol inhaler 1 - 2 puffs inhalation .COMPLEX PRN (Reason: shortness of breath or wheezing) Qty: 18 RF: 1 multivitamin Tablet 1 tab PO DAILY RF: 0 acetaminophen [Tylenol Extra Strength] 500 mg Tablet 1,000 mg PO Q6H PRN (Reason: Fever Or Pain) RF: 0 Discharge Orders: Discharge Order (Routine); Ordered 02/14/20 Ordered By: Terri Herrera Admission Data Admit Date/Time: 02/12/20 01:08 Attending Provider: Girma Hubbard Admit Provider: Roberto Wilkins Primary Care Provider: Jonn Fajardo Other Providers: Roe Breaux Other Interventions: Discharge Summary Assessment (RN) Last Done: 02/14/20 11:47 DC Date/Time DO NOT enter until pt leaves facility: 02/14/20 14:23 Supervising Physician Co-Signing Physician Notes Attending note: patient seen and examined with Terri JAIN. I agree with her discharge summary. I personally reviewed the labs and imaging findings. patient feeling much, much better after two days of treatment with Doxycycline and Rocephin no longer has muscle aches, headache, neck pain rash over left later thigh is clearing up at time of discharge Anaplasmosis was still pending, CSF Lyme pending on follow up lab check, the Anaplasmosis DNA was NEGATIVE presumed diagnosis at discharge was Anaplasmosis as patient had abrupt onset of fever/chills, elevated LFT, thrombocytopenia, leukopenia Lyme IgM (one band) came back positive reviewed CSF results, the Lyme IgM and IgG still pending certainly would be early to have GRA[employer] Lyme disease given only 4 days of systemic symptoms, also, no neurologic deficits like a nerve palsy discharged home on Doxycycline for 13 more doses, 100mg BID - Tick born illness, presumed to be Anaplasmosis but now Anaplasmosis DNA NEGATIVE most logical illness is early Lyme disease, given erythema migrans rash over left lateral thigh continue Doxycycline, may want to consider extending course to 14 days total, this would be 4 more days than prescribed if CSF Lyme is positive then would need Rocephin IV arranged by PCP will follow up results and reach out to PCP Coding Level of Care Code D/C Day Management >30 mins Diagnoses Fever R50.9 Fever type: unspecified Thrombocytopenia D69.6 Transaminitis R74.0 Asthma J45.909 Anemia D64.9 Rash R21 Neutropenia D70.9 DVT prophylaxis Z29.9
[2020-02-14] MEDS ORDERED: VANCOMYCIN TROUGH ONE (10:30)
[2020-02-14] MEDS: cefTRIAXone SODIUM 2,000 MG in DEXTROSE 5% 50 ML IV SCH (11:34)
[2020-02-14] MEDS ORDERED: DOXYCYCLINE HYCLATE 100 MG CAP PO STA (11:42)
[2020-02-14] MEDS: DOXYCYCLINE HYCLATE 100 MG in DEXTROSE 5% 100 ML IV SCH (12:44)
[2020-02-15 16:44] LABS: 18KDIGG Band NON-REACTIVE; 23KDIGG Band NON-REACTIVE; 23KDIGM Band NON-REACTIVE; 28KDIGG Band NON-REACTIVE; 30KDIGG Band NON-REACTIVE; 39KDIGG Band NON-REACTIVE; 39KDIGM Band REACTIVE; 41KDIGG Band NON-REACTIVE; 41KDIGM Band NON-REACTIVE; 45KDIGG Band NON-REACTIVE; 58KDIGG Band NON-REACTIVE; 66KDIGG Band NON-REACTIVE; 93KDIGG Band NON-REACTIVE; Lyme Antibodies, WB IgG NEGATIVE (NEGATIVE); Lyme Antibodies, WB IgM NEGATIVE (NEGATIVE)
--- NOTE | 2020-02-17 18:53 | Communication Note ---
Date of Service: February 17, 2020 Called Mr. Medina to follow up on his anaplasmosis and Lyme results. During our conversation he reported that he is having bad headaches frequently especially when standing. We discussed that this could be secondary to the lumbar puncture. Encouraged him to change positions slowly, drink plenty of water and add in some caffeinated beverages to help with the headaches. If they are persisting into next week he may need to consider a blood patch but it is probably too early to consider that at this point. I did ask him to see his provider this week to hu anguiano up and told him to come to the emergency department immediately if he begins to run a fever. I also reminded him to complete his entire antibiotic regimen. He was understanding of these instructions and will follow up. discussed case w Elba JAIN, present during her phone conversation w pt. as above
[2020-02-18 03:39] LABS: EBV DNA Quant PCR <200 copies/mL (<200); EBV DNA Quant Source CSF; EBV DNA, Quant Log <2.30 Log cps/mL (<2.30); Lyme DNA PCR CSF or Synovial Not detected (Not Detected); Lyme DNA Source CSF; Lyme IgG Band Pattern CSF DNR; Lyme IgG CSF NO BANDS DETECTED; Lyme IgM Band Pattern CSF DNR; Lyme IgM CSF NO BANDS DETECTED
== END 2020-02-14 14:23 | disposition home or self-care (01) ==
LOC: ED 21:33 → SUATTDRO 02-12 01:08 → 2W 02-12 01:08 → INTOOBSV 02-12 01:08 → 2W 02-12 01:41 → 2N 02-14 04:32